=== PATIENT | male | born 1980 | race Caucasian/White ===

== ENCOUNTER 2017-12-18 09:20 | Emergency (ER) | payer BC ==
[2017-12-18] MEDS ORDERED: Sodium Chloride 0.9% 1,000 ML IV ONE (09:26)
[2017-12-18] MEDS ORDERED: Diphtheria,Pertussis(Acell),Tetanus Vaccine 0.5 ML Syringe IM ONE (09:35)
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
--- NOTE | 2017-12-18 09:50 | CR ---
Portable chest Clinical history: Chest pain and shortness of breath Comparison: None. Findings: There is moderate cardiomegaly. The pulmonary vessels are upper normal limits in size. Ther e is subsegmental atelectasis at the left lung base. There is no overt failure or pneumonia. Impression: Shallow inspiratory chest with minor left base atelectasis. Moderately severe cardiomegal y.
--- NOTE | 2017-12-18 09:54 | CR ---
AP pelvis Clinical history: Pain Comparison: None. Findings: SI joints are normal. Greater and lesser pelvic rings are intact. Hip joints are symmetric with no abnormal finding. There is an incidental bone island in the left femoral neck Impression: No significant abnormalities
--- NOTE | 2017-12-18 09:58 | CT ---
CT scan of the cervical spine Medical history: Pain Comparison: None. Findings: The vertebral is aligned normally with slight straightening of the normal cervical lordosis likely positional area in there is no facet subluxation or significant arthropathy identified by bon e window imaging. The [place] axial imaging through the cervical spine demonstrates no evidence of signi ficant cervical spinal or neural foraminal stenosis nor evidence of likely herniated disc within the limits of CT scanning. There is a mild uncovertebral spur at C6-7 on the right slightly narrowing the inferior neural foramen Images of the soft tissues of the neck demonstrate normal pterygopalatine fossa normal parotid spaces normal nasopharyngeal and parapharyngeal spaces. The glottic supraglottic and subglottic structures appear normal and there is no significant adenopathy in the either the anterior posterior cervical ly mph node chain Impression: Minimal early degenerative findings with slight neural foraminal spur at C6-7 on the righ t. No evidence of herniated disc or central canal stenosis within limits of the study. No other signi ficant findings
--- NOTE | 2017-12-18 10:05 | CR ---
Left tibia and fibula Clinical history: Pain Comparison: None. Findings: The bones are normally mineralized. Joint spaces at the knee and ankle appear satisfactory. There is no fracture. Impression: No specific bony injury of the tibia or fibula
--- NOTE | 2017-12-18 10:06 | CR ---
Right shoulder Clinical history: Pain Comparison: None. Findings: The humeral head articulates with the glenoid. There is no fracture subluxation or periarti cular calcification. No unusual variant anatomy is present. No significant arthropathy for age. Impression: Normal shoulder
[2017-12-18] MEDS ORDERED: Enalaprilat 1.25 MG/ML SDV IVPUSH ONE (10:42)
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
[2017-12-18 10:53] LABS: CHLORIDE,CL 104 mmol/L (98-107); SODIUM,NA 141 mmol/L (136-148)
[2017-12-18] MEDS ORDERED: Aspirin 325 MG Tab PO ONE (11:41)
== END 2017-12-18 13:00 | disposition home or self-care (01) ==
LOC: MW.ED 09:20
DX: S01.411A Laceration without foreign body of right cheek and temporomandibular area, initial encounter (principal); M62.838 Other muscle spasm; I10 Essential (primary) hypertension; M25.511 Pain in right shoulder; F43.9 Reaction to severe stress, unspecified; V89.2XXA Person injured in unspecified motor-vehicle accident, traffic, initial encounter; Z88.5 Allergy status to narcotic agent; Z88.8 Allergy status to other drugs, medicaments and biological substances; Z88.0 Allergy status to penicillin
CPT/HCPCS: 36415; 70450; 71045; 72125; 72170; 73030; 73590; 80053; 80305; 81001; 84484; 85025; 90471; 90715; 93005; 96361; 96374; 99284; A9270; G0390; G0480; J7040